=== PATIENT | male | born 1980 | race Two or more races ===

== ENCOUNTER 2019-09-22 20:52 | Emergency (ER) | payer BC ==
[~2019-09-22] VITALS: Ht 180.3 cm; Wt 81.6 kg
[2019-09-22 20:52] VITALS: BP 127/86
[2019-09-22] MEDS ORDERED: TDAP [DIPH/PERTUSSIS/TET] 0.5 ML VIAL IM ONE ×2 (21:30→21:43)
[2019-09-22] MEDS ORDERED: LIDOCAINE 1%-EPI 1:100,000 20 ML VIAL ONE (22:22)
[2019-09-22] MEDS ORDERED: LIDOCAINE 1%-EPI 1:100,000 20 ML VIAL TP ONE (22:30)
== END 2019-09-22 23:07 | disposition home or self-care (01) ==
LOC: ER 20:53
DX: S01.01XA Laceration without foreign body of scalp, initial encounter (principal); W01.0XXA Fall on same level from slipping, tripping and stumbling without subsequent striking against object, initial encounter; Y93.89 Activity, other specified; Y92.89 Other specified places as the place of occurrence of the external cause; Y99.8 Other external cause status
CPT/HCPCS: 12001; 70450; 90471; 90715; 99284; A6403; J3490